=== PATIENT | male | born 1955 | race Caucasian/White ===

== ENCOUNTER 2016-11-27 12:59 | Inpatient (IN) | payer MEDICARE, MEDICAID ==
[~2016-11-27] VITALS: Ht 160 cm; Wt 65.8 kg
--- NOTE | 2016-11-27 13:15 | NUR ---
BIB RA FROM DIALYSIS FOR BEING ALTERED DURING DIALYSIS, PATIENT WAS NOT ALTERED UPON ARRIVAL ACCORDING TO RA, PATIENT IS VERBALLY RESPONSIVE, A/O X4, ABLE TO AMBULATE TO BED, PLACED ON MONITOR, NO OTHER MEDICAL COMPLAINTS NOTED, WILL CONTINUE TO MONITOR CLOS[place]
[2016-11-27 13:30] LABS: BASOPHILS % (AUTO) 0.7 % (0.0-2.0); EOSINOPHILS # (AUTO) 0.1 /CMM (0.0-0.7); EOSINOPHILS % (AUTO) 2.3 % (0.0-6.0); HEMATOCRIT 28 % (39-51); HEMOGLOBIN 9.8 g/dL (13.5-17.5); LYMPHOCYTES # (AUTO) 0.9 /CMM (0.8-4.8); LYMPHOCYTES % (AUTO) 13.2 % (20.0-44.0); MEAN CORPUSCULAR HEMOGLOBIN 34 PG (26.0-33.0); MEAN CORPUSCULAR HGB CONC 35 g/dl (31.0-36.0); MEAN CORPUSCULAR VOLUME 97 fL (80-96); MONOCYTES # (AUTO) 0.4 /CMM (0.1-1.30); MONOCYTES % (AUTO) 6.9 % (2.0-12.0); NEUTROPHILS # (AUTO) 5.1 /CMM (1.8-8.9); NEUTROPHILS % (AUTO) 76.9 % (43.0-81.0); PLATELET COUNT (AUTO) 207 /CMM (150-450); RDW COEFFICIENT OF VARIATION 17.4 (11.5-15.0); RED BLOOD CELL COUNT(AUTO) 2.88 MIL/uL (4.5-6.0); WHITE BLOOD COUNT (AUTO) 6.5 K/uL (4.3-11.0)
[2016-11-27 13:44] LABS: CALCIUM, SERUM 8.9 mg/dL (8.5-10.1); POTASSIUM 3.2 mmol/L (3.5-5.1)
[2016-11-27 13:50] LABS: ALBUMIN 3.8 g/dL (3.4-5.0); BILIRUBIN,DIRECT 0.1 mg/dL (0.0-0.2); BILIRUBIN,TOTAL 0.4 mg/dL (0.2-1.0); TOTAL PROTEIN, SERUM 8.2 g/dL (6.4-8.2)
[2016-11-27 13:51] LABS: CREATININE 7.9 mg/dL (0.6-1.3)
[2016-11-27 13:54] LABS: SERUM AMMONIA 26 umol/L (11-32)
--- NOTE | 2016-11-27 14:02 | NUR ---
DR WALLIS ON THE PHONE WITH DR JUNE.
[2016-11-27] MEDS ORDERED: BENA20TA2 PO (14:07)
[2016-11-27] MEDS ORDERED: HYDR-3326 PO (14:07)
[2016-11-27] MEDS ORDERED: DIPH25CA6 PO (14:07)
[2016-11-27] MEDS ORDERED: SEVE400T PO (14:07)
[2016-11-27] MEDS ORDERED: DOCU-25 PO (14:07)
[2016-11-27] MEDS ORDERED: BISA10SU8 RC (14:07)
[2016-11-27] MEDS ORDERED: CARV6.25 PO (14:07)
[2016-11-27] MEDS ORDERED: PANT40TA4 PO (14:07)
[2016-11-27] MEDS ORDERED: FOLI0.4T2 PO (14:07)
[2016-11-27] MEDS ORDERED: CALC-7 PO (14:07)
[2016-11-27] MEDS ORDERED: MIRT15TA PO (14:07)
[2016-11-27] MEDS ORDERED: CINA30TA PO (14:07)
[2016-11-27] MEDS ORDERED: ASCO500T9 PO (14:09)
[2016-11-27] MEDS ORDERED: VITA1TAB56 PO (14:09)
[2016-11-27] MEDS ORDERED: ACET-868 PO (14:09)
[2016-11-27] MEDS ORDERED: CYAN10009 PO (14:09)
--- NOTE | 2016-11-27 14:11 | NUR ---
IV PLACED R AC 18G. PATENT AND FLUSHING WELL
[2016-11-27 14:13] LABS: ACETAMINOPHEN 0 ug/ml (10-30); ALCOHOL, BLOOD < 3 mg/dL (0-0); SALICYLATE 1.8 mg/dL (2.8-20.0)
[2016-11-27] MEDS ORDERED: hydrALAZINE HCL IV 20 MG VIAL ONE (14:24)
[2016-11-27] MEDS ORDERED: hydrALAZINE HCL IV 20 MG VIAL IV ONE (14:30)
--- NOTE | 2016-11-27 14:31 | NUR ---
MEDICATIONS GIVEN ORDERED.
--- NOTE | 2016-11-27 14:49 | NUR ---
Report given to nurse Brizuela for continuity of care
[2016-11-27 14:52] LABS: ABG BASE EXCESS 1.6 mmol/L; ABG OXYGEN SATURATION 96.8 % (92.0-98.5); ABG PCO2 32.6 mmHg (35.0-45.0); ABG PH 7.495 (7.350-7.450); AaDO2 11.7 mmHg; COHb 0.6 % (0.5-1.5); MetHb 0.4 % (0.0-1.5); O2Hb 95.8 % (94.0-97.0); SITE, ABG Right Radial; VENT MODE, BG ROOM AIR
--- NOTE | 2016-11-27 15:19 | NUR ---
patient transported to [facility].
--- NOTE | 2016-11-27 15:20 | NUR ---
WELDING EQUIPMENT REPAIRER SUPERVISOR NOTES RECEIVED PT FROM E.R. STAFF, PT AWAKE, ALERT TO SELF, KNOW WHERE HE IS BUT CANNOT RECALL TODAY'S DATE, DENIES PAIN, RESPIRATIONS NORMAL, NO COMPLAINT OF HEADACHE OR DIZZINESS, ASSISTED TO BED, MADE COMFORTABLE, CALL LIGHT WITHIN REACH, ROOM SET UP ORIENTATION PROVIDED TO PT, BELONGINGS CHECKED, DIALYSIS CATH AT LEFT UPPER CHEST, NO BLEEDING NOTED, AWAITING ADMISSION ORDERS FROM DR. ZAMORA.
[2016-11-27 16:00] VITALS: BP 161/105
[2016-11-27] MEDS ORDERED: HYDROCODONE/APAP 5/325MG 1 EACH TABLET PO PRN ×2 (16:00)
[2016-11-27] MEDS ORDERED: ACETAMINOPHEN 325 MG TABLET PO PRN (16:00)
[2016-11-27] MEDS ORDERED: BISACODYL SUPP (10 MG) 10 MG/SUPP.RECT SUPP.RECT RC PRN (16:00)
[2016-11-27] MEDS ORDERED: diphenhydrAMINE HCL 25 MG CAPSULE PO PRN (16:00)
[2016-11-27 17:01] LABS: RETICULOCYTE COUNT 2.4 % (0.6-2.5)
[2016-11-27 17:13] LABS: PROTHROMBIN TIME 10.7 SECS (9.5-12.7)
[2016-11-27] MEDS: MIRTAZAPINE 15 MG TABLET PO SCH ×2 (17:25→21:39)
[2016-11-27] MEDS: CARVEDILOL 6.25 MG TABLET PO SCH (17:25)
[2016-11-27] MEDS: ASCORBIC ACID 500 MG TABLET PO SCH (17:25)
[2016-11-27] MEDS: BENAZEPRIL HCL 20 MG TABLET PO SCH (17:25)
--- NOTE | 2016-11-27 19:40 | NUR ---
MS RN NOTES RECEIVED ON BED SLEEPING,AROUSABLE TO VERBAL STIMULI,A/O X1-2,RE ORIENT TO PLACE AND ROOM ASSIGNMENT.WITH LEFT CHEST WALL DONNY CATH FOR HD ACCESS.SALINE LOCK RIGHT AC INTACT AND PATENT.CALL LIGHT IN REACH,NEEDS ANTICIPATED.
[2016-11-27 20:00] VITALS: BP 146/105
[2016-11-27] MEDS: DOCUSATE SODIUM 100 MG CAPSULE PO SCH (21:39)
--- NOTE | 2016-11-27 22:00 | NUR ---
MS RN NOTES DUE PO MEDS ADMINISTERED,TAKEN WELL.SNACKS PROVIDED PER PATIENT REQUEST
[2016-11-28] VITALS (11 sets, daily range): BP systolic 140–199; BP diastolic 80–108
--- NOTE | 2016-11-28 06:37 | NUR ---
MS RN NOTES REFUSE VITAL SIGNS AT 5AM.SCREAM TO KATIE
--- NOTE | 2016-11-28 06:38 | NUR ---
MS RN NOTES FAIRLY RESTED,DENIES DISCOMFORTS,CALL LIGHT IN REACH,NEEDS ATTENDED.WILL ENDORSE TO DAY NURSE TO MIKAELA.
[2016-11-28 06:41] LABS: ALBUMIN 3.5 g/dL (3.4-5.0); BILIRUBIN,TOTAL 0.3 mg/dL (0.2-1.0); CALCIUM, SERUM 8.2 mg/dL (8.5-10.1); POTASSIUM 3.9 mmol/L (3.5-5.1); TOTAL PROTEIN, SERUM 7.6 g/dL (6.4-8.2)
[2016-11-28 06:51] LABS: CREATININE 10.6 mg/dL (0.6-1.3)
[2016-11-28 07:23] LABS: HEMATOCRIT 28 % (39-51); HEMOGLOBIN 9.2 g/dL (13.5-17.5); MEAN CORPUSCULAR HEMOGLOBIN 33 PG (26.0-33.0); MEAN CORPUSCULAR VOLUME 99 fL (80-96); RED BLOOD CELL COUNT(AUTO) 2.83 MIL/uL (4.5-6.0)
[2016-11-28 07:24] LABS: BASOPHILS # (AUTO) 0.1 /CMM (0.0-0.2); BASOPHILS % (AUTO) 0.8 % (0.0-2.0); EOSINOPHILS # (AUTO) 0.2 /CMM (0.0-0.7); EOSINOPHILS % (AUTO) 2.5 % (0.0-6.0); LYMPHOCYTES # (AUTO) 1.3 /CMM (0.8-4.8); LYMPHOCYTES % (AUTO) 18.9 % (20.0-44.0); MEAN CORPUSCULAR HGB CONC 33 g/dl (31.0-36.0); MONOCYTES # (AUTO) 0.7 /CMM (0.1-1.30); MONOCYTES % (AUTO) 9.4 % (2.0-12.0); NEUTROPHILS # (AUTO) 4.8 /CMM (1.8-8.9); NEUTROPHILS % (AUTO) 68.4 % (43.0-81.0); PLATELET COUNT (AUTO) 210 /CMM (150-450); RDW COEFFICIENT OF VARIATION 18.8 (11.5-15.0)
--- NOTE | 2016-11-28 07:30 | NUR ---
MS RN AM NOTES PT IN BED, ASLEEP, AROUSES TO NAME AND TOUCH, AOX2, ON RA, NAD, NO SOB, O2 SAT 99%, TELEMETRY READS SR HR 91, DENIES ANY CHEST PAIN, RT AC 18G HL, FLUSHES WELL SITE CLEAR. LCW PERMACATH, WITH CDI DRESSING, FOR CARDIAC AND NEPHRO CONSULT. [facility] SOFT DIET, AMBULATES, CALL LIGHT IN REACH, SR X 2, BED LOW LOCKED. WILL CONT TO MONITOR.
[2016-11-28 08:14] LABS: TROPONIN I 0.155 ng/mL (0.00-0.056)
[2016-11-28] MEDS: CYANOCOBALAMIN 500 MCG TABLET PO SCH (08:58)
[2016-11-28] MEDS: CINACALCET HCL 30 MG TABLET PO SCH (08:58)
[2016-11-28] MEDS: BENAZEPRIL HCL 20 MG TABLET PO SCH ×2 (08:58→16:40)
[2016-11-28] MEDS: FOLIC ACID 1 MG TABLET PO SCH (08:58)
[2016-11-28] MEDS: CALCIUM CARB 250MG /VITAMIN D 1 UDTAB PO SCH (08:58)
[2016-11-28] MEDS: ASCORBIC ACID 500 MG TABLET PO SCH (08:58)
[2016-11-28] MEDS: CARVEDILOL 6.25 MG TABLET PO SCH ×2 (08:59→16:40)
[2016-11-28] MEDS: VITAMIN B COMP W-C 1 TAB TABLET PO SCH (08:59)
[2016-11-28] MEDS: PANTOPRAZOLE 40 MG TABLET.DR PO SCH (08:59)
[2016-11-28] MEDS ORDERED: SEVELAMER CARBONATE 800 MG TABLET PO SCH (09:00)
[2016-11-28 09:07] LABS: THYROID STIMULATING HORMONE 2.073 uIU/mL (0.358-3.74)
--- NOTE | 2016-11-28 09:30 | NUR ---
HUMAN RELATIONS TEACHER NOTES ADMINISTERED DUE MED. BP RECHECKED 150/85. NOTICED THAT PATIENT IS TALKING TO SELF.
[2016-11-28] MEDS: ASPIRIN EC 81 MG TABLET.DR PO SCH (12:07)
[2016-11-28 12:09] LABS: CHOLESTEROL 151 mg/dL (<200); HDL CHOLESTEROL 52 mg/dL (40-60); LDL 81 mg/dL (0-99); TRIGLYCERIDES 68 mg/dL (30-150)
[2016-11-28] MEDS: SEVELAMER CARBONATE 800 MG TABLET PO SCH ×2 (13:55→17:08)
[2016-11-28] MEDS: hydrALAZINE HCL 10 MG TABLET PO PRN (16:39)
--- NOTE | 2016-11-28 16:42 | NUR ---
VICE PRESIDENT FOR INSTRUCTION NOTE ADMINISTERED APRESOLINE 10 MG. BP 190/108. SEEN BY DR. ZAMORA TODAY.
--- NOTE | 2016-11-28 17:40 | NUR ---
ELECTRONIC SCALE ASSEMBLER AND TESTER NOTES BP RECHECKED. 188/94
--- NOTE | 2016-11-28 18:05 | NUR ---
QUALITY CONTROL ASSISTANT NOTES BP RECHECKED. 160/80
--- NOTE | 2016-11-28 19:01 | NUR ---
CONTRACT DRIVER NOTES ALL NEEDS MET. PT RESTING COMFORTABLY. NOT IN ANY DISTRESS, NO SOB, RESPIRATION UNLABORED. TELEMETRY READS SR HR 80-90s. DENIES ANY PAIN. RTAC HL 20GN IN PLACE, FLUSHES WELL SITE CLEAR. AMBULATES TO BATHROOM. STANDBY FOR FALL RISK. ALL NEEDS MET. SAFETY MEASURES IN PLACE. ASSISTED WITH PM CARE. CALL LIGHT WITHIN REACH, ALL NEEDS MET. ENDORSED TO NEXT SHIFT FOR MIKAELA.
--- NOTE | 2016-11-28 19:05 | NUR ---
NEUROLOGY STROKE PHYSICIAN OPENING NOTES: RECEIVED PT AND IS CURRENTLY SLEEPING IN BED. PT IS A/O X1-2 WITH PERIODS OF CONFUSION. PT IS ON TELE MONITOR AND IS SR 96. CALL LIGHT WITHIN PT'S REACH. BED KEPT IN LOCKED, LOWEST POSITION, AND SIDE RAILS X 2 UP. PT HAS IV ON R AC #18G AND IS PATENT AND INTACT AND CURRENTLY HEP LOCK. NO SIGNS OR SYMPTOMS OF DISTRESS NOTED AT THIS TIME. WILL CONTINUE TO MONITOR PT.
--- NOTE | 2016-11-28 20:00 | NUR ---
PROPERTY CLAIM REP NOTES: BP FOR LAYING DOWN WAS 185/118 HR 79, SITTING DOWN 160/102 HR 79, AND STANDING 152/95 HR 79. PT VOICED HE IS NOT IN ANY PAIN. APRESOLINE WAS GIVEN AT 1639 BY AM NURSE. WILL CONTINUE TO MONITOR PT.
[2016-11-28] MEDS: MIRTAZAPINE 15 MG TABLET PO SCH (21:00)
[2016-11-28] MEDS: DOCUSATE SODIUM 100 MG CAPSULE PO SCH (21:00)
[2016-11-29] VITALS (8 sets, daily range): BP systolic 135–184; BP diastolic 78–105
--- NOTE | 2016-11-29 | NUR ---
MINE ENVIRONMENTAL ENGINEER NOTES: BP FOR LAYING DOWN WAS 145/105 HR 84, SITTING DOWN 153/101 HR 90, AND STANDING IS 164/98 HR 92. WILL CONTINUE TO MONITOR PT.
--- NOTE | 2016-11-29 04:00 | NUR ---
TOP FLAVOR ATTENDANT NOTES: BLOOD PRESSURE WAS CHECKED FOR FOLLOWS SITTIN/99 HR 86, LAYING DOWN: 162/86 HR 87, AND STANDING 155/102 HR 91. WILL CONTINUE TO MONITOR PT.
[2016-11-29] MEDS: hydrALAZINE HCL 10 MG TABLET PO PRN (04:56)
--- NOTE | 2016-11-29 04:56 | NUR ---
REPAIRER HAIRSPRING NOTES: APRESOLINE 10MG WAS ADMINISTERED TO PT SINCE BLOOD PRESSURE IS STILL ELEVATED 162/86 HR 87. WILL CONTINUE TO MONITOR PT.
--- NOTE | 2016-11-29 06:39 | NUR ---
FERRY OPERATOR NOTES: BLOOD PRESSURE WAS CHECKED AGAIN FOLLOWS : SITTING 189/103 HR84, LAYING DOWN 184/91 HR 81, AND STANDING 189/105 HR 90. TEMP 97.4, RR 20, AND PULSE OX 98% . WILL ENDORSE TO AM NURSE FOR MIKAELA.
[2016-11-29 07:13] LABS: BASOPHILS # (AUTO) 0.1 /CMM (0.0-0.2); BASOPHILS % (AUTO) 1.1 % (0.0-2.0); EOSINOPHILS # (AUTO) 0.3 /CMM (0.0-0.7); EOSINOPHILS % (AUTO) 4.2 % (0.0-6.0); HEMATOCRIT 28 % (39-51); HEMOGLOBIN 9.4 g/dL (13.5-17.5); LYMPHOCYTES # (AUTO) 1.5 /CMM (0.8-4.8); LYMPHOCYTES % (AUTO) 21.3 % (20.0-44.0); MEAN CORPUSCULAR HEMOGLOBIN 33 PG (26.0-33.0); MEAN CORPUSCULAR HGB CONC 34 g/dl (31.0-36.0); MEAN CORPUSCULAR VOLUME 99 fL (80-96); MONOCYTES # (AUTO) 0.7 /CMM (0.1-1.30); MONOCYTES % (AUTO) 9.9 % (2.0-12.0); NEUTROPHILS # (AUTO) 4.5 /CMM (1.8-8.9); NEUTROPHILS % (AUTO) 63.5 % (43.0-81.0); PLATELET COUNT (AUTO) 192 /CMM (150-450); RDW COEFFICIENT OF VARIATION 18.3 (11.5-15.0); RED BLOOD CELL COUNT(AUTO) 2.81 MIL/uL (4.5-6.0); WHITE BLOOD COUNT (AUTO) 7.1 K/uL (4.3-11.0)
--- NOTE | 2016-11-29 07:15 | NUR ---
SOCIAL RESEARCH ASSISTANT CLOSING NOTES: ALL NEEDS WERE ATTENDED AND ANTICIPATED FOR. PT IS IN IN BED ASLEEP. NO SIGNS OR SYMPTOMS OF DISTRESS NOTED AT THIS TIME. PT IS ON TELE MONITOR AND IS SINUS RHYTHM 80. PT HAS L CW PERMA CATH AND IS INTACT. PT ALSO HAS R AC #18G AND IS PATENT AND INTACT AND IS CURRENTLY HEP LOCK. OUTPUT FROM URINAL WAS 100ML FOR ENTIRE SHIFT. ENDORSED TO AM NURSE FOR MIKAELA.
[2016-11-29 07:55] LABS: CALCIUM, SERUM 8.3 mg/dL (8.5-10.1); MAGNESIUM 2.3 mg/dL (1.8-2.4); PHOSPHORUS 6.7 mg/dL (2.5-4.9); POTASSIUM 4.2 mmol/L (3.5-5.1)
[2016-11-29 07:56] LABS: CREATININE 11.8 mg/dL (0.6-1.3)
[2016-11-29] MEDS: ASCORBIC ACID 500 MG TABLET PO SCH (08:18)
[2016-11-29] MEDS: VITAMIN B COMP W-C 1 TAB TABLET PO SCH (08:18)
[2016-11-29] MEDS: SEVELAMER CARBONATE 800 MG TABLET PO SCH ×3 (08:18→17:23)
[2016-11-29] MEDS: FOLIC ACID 1 MG TABLET PO SCH (08:18)
[2016-11-29] MEDS: ASPIRIN EC 81 MG TABLET.DR PO SCH (08:18)
[2016-11-29] MEDS: PANTOPRAZOLE 40 MG TABLET.DR PO SCH (08:18)
[2016-11-29] MEDS: CALCIUM CARB 250MG /VITAMIN D 1 UDTAB PO SCH (08:18)
[2016-11-29] MEDS: CINACALCET HCL 30 MG TABLET PO SCH (08:19)
[2016-11-29] MEDS: CYANOCOBALAMIN 500 MCG TABLET PO SCH (08:19)
[2016-11-29] MEDS ORDERED: IV NS 0.9% 2,000 ML ONE (08:35)
--- NOTE | 2016-11-29 08:35 | NUR ---
m/s carding machine operator: notes kristine (hd nurse) here and made aware re: elevated b/p and meds were held. kristine request for 2 bags of normal saline for hd tx to use.
--- NOTE | 2016-11-29 09:00 | NUR ---
m/s general dentist: notes hd tx in progress. no acute distress noted. will continue to monitor.
[2016-11-29] MEDS ORDERED: hydrALAZINE HCL 25 MG TABLET PO PRN (10:00)
--- NOTE | 2016-11-29 10:00 | NUR ---
tele vice president & general manager [employer] [place]: cardio f/u seen and examined by dr. chao with order okay to d'c tele. order acknowledged.
--- NOTE | 2016-11-29 11:00 | NUR ---
m/s clothes designer: nephro f/u seen and examined by dr. hartman at this time.
[2016-11-29] MEDS: BENAZEPRIL HCL 20 MG TABLET PO SCH ×2 (11:08→16:31)
--- NOTE | 2016-11-29 11:08 | NUR ---
m/s children librarian: notes hd completed with 2 liters removed. b/p 100/62, held b/p medication. instructed to call for assistance. will continue to monitor.
--- NOTE | 2016-11-29 13:45 | NUR ---
m/s horse trainer: p.t. eval p.t. eval done. pt walked 200 feet, contact guard per report. pt unsteady with his gait. instructed to call for assistance. will continue to monitor.
--- NOTE | 2016-11-29 14:50 | NUR ---
m/s venetian blind machine operator: md visit seen and examined by dr. lima at this time.
[2016-11-29] MEDS ORDERED: EPOETIN ALFA (10,000 UNIT) 10,000 UNIT/ML VIAL SQ ONE (15:00)
[2016-11-29] MEDS: CARVEDILOL 6.25 MG TABLET PO SCH (16:31)
--- NOTE | 2016-11-29 16:35 | NUR ---
m/s computer technician: notes eeg being perform at bedside at this time to evaluate epileptiform activity.
--- NOTE | 2016-11-29 17:08 | NUR ---
m/s muff winder: notes eeg completed with no seizure activity per preliminary report.
--- NOTE | 2016-11-29 17:25 | NUR ---
m/s appeals manager: notes dinner served. no c/o pain or any discomfort. needs attended. in no apparent distress noted. will continue to monitor.
--- NOTE | 2016-11-29 19:30 | NUR ---
RN INITIAL NOTES RECEIVED PATIENT IN BED, SLEEPING AT THIS TIME, WAKES UP TO NAME AND LIGHT TOUCH. PATIENT ALERT AND ORIENTED X3 AT THIS TIME. PATIENT TOLERATING ROOM AIR WELL, FREE FROM ANY S/S OF RESPIRATORY DISTRESS. IV SITE PATENT AND INTACT, FREE FROM ANY S/S OF INFILTRATION OR PHLEBITIS. PATIENT MADE COMFORTABLE, ALL PERTINENT QUESTIONS REGARDING PLAN OF CARE ANSWERED. CALL LIGHT WITHIN EASY REACH, BED IN LOWEST AND LOCKED POSITION. WILL CONTINUE TO CLOSELY MONITOR.
[2016-11-29] MEDS: DOCUSATE SODIUM 100 MG CAPSULE PO SCH (21:54)
[2016-11-29] MEDS: MIRTAZAPINE 15 MG TABLET PO SCH (21:55)
--- NOTE | 2016-11-30 07:20 | NUR ---
MS RN OPENING NOTES RECEIVED PT. FROM NIGHTSHIFT NURSE IN STABLE CONDITION, AWAKE AND LYING COMFORTABLY IN BED. NO SOB OR SIGNS OF DISTRESS NOTED. DENIES ANY PAIN AT THIS TIME. PT IS A/O X3. IV PRESENT ON RIGHT AC 18G PATENT AND INTACT. BED IN LOW LOCKED POSITION, SIDE RAILS UP X2, CALL LIGHT WITHIN REACH. WILL CONTINUE TO MONITOR.
[2016-11-30 08:00] VITALS: BP 138/82
[2016-11-30] MEDS: PANTOPRAZOLE 40 MG TABLET.DR PO SCH (08:29)
[2016-11-30] MEDS: SEVELAMER CARBONATE 800 MG TABLET PO SCH ×3 (08:29→17:26)
[2016-11-30] MEDS: ASCORBIC ACID 500 MG TABLET PO SCH (08:30)
[2016-11-30] MEDS: BENAZEPRIL HCL 20 MG TABLET PO SCH ×2 (08:30→17:00)
[2016-11-30] MEDS: CINACALCET HCL 30 MG TABLET PO SCH (08:30)
[2016-11-30] MEDS: FOLIC ACID 1 MG TABLET PO SCH (08:30)
[2016-11-30] MEDS: ASPIRIN EC 81 MG TABLET.DR PO SCH (08:30)
[2016-11-30] MEDS: CARVEDILOL 6.25 MG TABLET PO SCH ×2 (08:31→17:00)
[2016-11-30] MEDS: CALCIUM CARB 250MG /VITAMIN D 1 UDTAB PO SCH (08:31)
[2016-11-30] MEDS: VITAMIN B COMP W-C 1 TAB TABLET PO SCH (08:31)
[2016-11-30] MEDS: CYANOCOBALAMIN 500 MCG TABLET PO SCH (08:31)
[2016-11-30 16:07] VITALS: BP 123/81
[2016-11-30] MEDS ORDERED: IV NS 0.9% 1,000 ML ONE (16:29)
--- NOTE | 2016-11-30 17:01 | NUR ---
MS RN NOTES PT. IS CURRENTLY RECEIVING DIALYSIS
[2016-11-30] MEDS ORDERED: IV NS 0.9% 1,000 ML IV PRN (17:30)
--- NOTE | 2016-11-30 18:49 | NUR ---
RN CLOSING NOTES PT. IN STABLE CONDITION. DIALYSIS WAS COMPLETED AND 1.5L WAS REMOVED. ALL NEEDS MET DURING SHIFT AND ORDERS CARRIED OUT ACCORDINGLY. NO ACUTE CHANGES OCCURRED DURING SHIFT. NO SYNCOPAL EPISODES OR CHANGES IN MENTAL STATUS. WILL ENDORSE TO NIGHTSHIFT NURSE FOR MIKAELA
--- NOTE | 2016-11-30 19:40 | NUR ---
RN OPENING NOTES RECEIVED REPORT FROM DAYSMTFT RN AFSATU. FOUND Pt AWAKE RESTING IN BED. NO S/S OF ACUTE DISTRESS OR SOB NOTED. NO C/O PAIN OR DIZZINESS. Pt IS A/OX3. IV ACCESS ON RAC #18G, SL. LCW PERMACATH. HAD HD TODAY WITH 1.5L OUTPUT. SAFETY MEASURES IN PLACE. BED LOW, LOCKED, HOB ELEVATED, SIDE RAILS UP, CALL LIGHT AND BEDSIDE TABLE WITHIN REACH. WILL CONTINUE TO MONITOR Pt THROUGHOUT THE SHIFT.
[2016-11-30 20:00] VITALS: BP_SYST 117; BP_SYST 130; BP_DIAS 77; BP_DIAS 87
[2016-11-30] MEDS: MIRTAZAPINE 15 MG TABLET PO SCH (22:18)
[2016-11-30] MEDS: DOCUSATE SODIUM 100 MG CAPSULE PO SCH (22:18)
--- NOTE | 2016-12-01 06:23 | NUR ---
RN CLOSING NOTES NO SIGNIFICANT CHANGES NOTED DURING THE NIGHT. NO ACUTE DISTRESS OR SOB NOTED. ALL NEEDS MET AND ATTENDED TO. SAFETY MEASURES IN PLACE. WILL ENDORSE TO DAYSHIFT RN FOR Pt's MIKAELA.
[2016-12-01] MEDS: PANTOPRAZOLE 40 MG TABLET.DR PO SCH (06:41)
[2016-12-01 08:00] VITALS: BP 134/92
--- NOTE | 2016-12-01 08:01 | NUR ---
RN MS NOTES RECEIVED PATIENT IN BED, IN NO APPARENT DISTRESS. A/OX 4, VERBALLY RESPONSIVE, DENIES PAIN, DENIES SOB. DENIES DIZZINESS. IV LINE ON RIGHT AC PATENT, WITH LEFT CHEST WALL PERMACATH. ALL NEEDS MET, CALL LIGHT WITHIN REACH.
[2016-12-01] MEDS: SEVELAMER CARBONATE 800 MG TABLET PO SCH ×3 (09:01→17:29)
[2016-12-01] MEDS: CALCIUM CARB 250MG /VITAMIN D 1 UDTAB PO SCH (09:02)
[2016-12-01] MEDS: ASPIRIN EC 81 MG TABLET.DR PO SCH (09:02)
[2016-12-01] MEDS: CINACALCET HCL 30 MG TABLET PO SCH (09:02)
[2016-12-01] MEDS: CYANOCOBALAMIN 500 MCG TABLET PO SCH (09:02)
[2016-12-01] MEDS: VITAMIN B COMP W-C 1 TAB TABLET PO SCH (09:02)
[2016-12-01] MEDS: CARVEDILOL 6.25 MG TABLET PO SCH ×2 (09:03→17:30)
[2016-12-01] MEDS: ASCORBIC ACID 500 MG TABLET PO SCH (09:03)
[2016-12-01] MEDS: BENAZEPRIL HCL 20 MG TABLET PO SCH ×2 (09:03→17:00)
[2016-12-01] MEDS: FOLIC ACID 1 MG TABLET PO SCH (09:03)
[2016-12-01 09:19] LABS: CALCIUM, SERUM 8.5 mg/dL (8.5-10.1); POTASSIUM 3.8 mmol/L (3.5-5.1)
[2016-12-01 09:29] LABS: CREATININE 7.9 mg/dL (0.6-1.3)
[2016-12-01 10:33] LABS: PHOSPHORUS 4.5 mg/dL (2.5-4.9)
[2016-12-01 16:00] VITALS: BP 113/73
--- NOTE | 2016-12-01 19:35 | NUR ---
RN OPENING NOTES Pt BEING [facility]. WILL CALL CENTER TO GIVE REPORT. FOUND Pt AWAKE RESTING IN BED. NO S/S OF ACUTE DISTRESS OR SOB NOTED. NO C/O PAIN OR DIZZINESS. WILL CONTINUE TO MONITOR Pt UNTIL AMBULANCE ARRIVES FOR TRANSPORTATION.
[2016-12-01 20:00] VITALS: BP 104/65
--- NOTE | 2016-12-01 21:00 | NUR ---
PSYCHIATRIC CLINICIAN NOTES CALLED [facility] TO GIVE REPORT, SPOKE WITH CLAU. EMT AMBULANCE ARRIVED TO LAMINATION SPINNER Pt FOR TRANSPORTATION. Pt IS STABLE. VS @2000: BP 104/65, HR 86, R 18, T 98.9, O2 98%. NO S/S OF ACUTE DISTRESS OR SOB NOTED. NO C/O PAIN OR DIZZINESS. SAFETY MEASURES CARRIED OUT. IV ACCESS ON RAC REMOVED, SECURED SITE WITH GAUZE AND TAPE. Pt SAFETY TRANSFERRED TO [facility] AND CARRIED OUT BY EMT.
== END 2016-12-01 20:50 | DRG 280 ==
LOC: ER 13:02 → TELE 14:39 → MED 11-29 10:55
PROVIDERS: ADMIT Internal Medicine Rheumatology; ATTEND Internal Medicine Rheumatology
PROC: 5A1D60Z (ICD-10-PCS; principal; 2016-11-29)
DX: I21.4 Non-ST elevation (NSTEMI) myocardial infarction (principal); N18.6 End stage renal disease; G93.49 Other encephalopathy; I12.0 Hypertensive chronic kidney disease with stage 5 chronic kidney disease or end stage renal disease; Z99.2 Dependence on renal dialysis; E87.6 Hypokalemia
CPT/HCPCS: 36415; 36600; 70450-TC; 71010-TC; 80048-TC; 80053-TC; 80061-TC; 80076-TC; 82140-TC; 82306; 82728-TC; 82746; 83540-TC; 83615-TC; 83735-TC; 84100-TC; 84439-TC; 84443-TC; 84484-TC; 84550-TC; 85025-TC; 85045-TC; 85610-TC; 85652-TC; 87040-TC; 87081-TC; 90935-TC; 93307-TC; 95819-TC; 97001-TC; 97116-TC; 97530-TC; A4606; G0480; J0360; J0885; J7030; Z7610

== ENCOUNTER 2017-05-19 12:31 | Inpatient (IN) | payer MEDICARE, MEDICAID ==
[~2017-05-19] VITALS: Ht 167.6 cm; Wt 64.0 kg
[~2017-05-19 12:31] MED LIST: ACET-868 PO; ASCO500T9 PO; BENA20TA2 PO; BISA10SU8 RC; CALC-7 PO; CARV6.25 PO; CINA30TA PO; CYAN10009 PO; DIPH25CA6 PO; DOCU-25 PO; FOLI0.4T2 PO; HYDR-3326 PO; MIRT15TA PO; PANT40TA4 PO; SEVE400T PO; VITA1TAB56 PO
--- NOTE | 2017-05-19 12:40 | NUR ---
BBRA 99 FROM DIALYSIS CENTER FOUND ALTERED AND LETHARGIC POST DIALYSIS. VOMITING X1, BS [place] 137. A/OX 3 CURRENTLY, BREATHING EVEN AND UNLABORED. NO SOB. VITALS STABLE. SAFETY AND COMFORT MEASURES IN PLACE. AWAITING MD ORDERS.
--- NOTE | 2017-05-19 12:45 | NUR ---
NEW IV STARTED ON R HAND, 20 G. BLOOD DRAWN AND SENT TO LAB.
[2017-05-19 12:51] LABS: BASOPHILS # (AUTO) 0.1 /CMM (0.0-0.2); BASOPHILS % (AUTO) 1.7 % (0.0-2.0); EOSINOPHILS # (AUTO) 0.1 /CMM (0.0-0.7); EOSINOPHILS % (AUTO) 2.1 % (0.0-6.0); HEMATOCRIT 30 % (39-51); HEMOGLOBIN 10.2 g/dL (13.5-17.5); LYMPHOCYTES # (AUTO) 0.7 /CMM (0.8-4.8); LYMPHOCYTES % (AUTO) 12.9 % (20.0-44.0); MEAN CORPUSCULAR HEMOGLOBIN 35 PG (26.0-33.0); MEAN CORPUSCULAR HGB CONC 33 g/dl (31.0-36.0); MEAN CORPUSCULAR VOLUME 104 fL (80-96); MONOCYTES # (AUTO) 0.3 /CMM (0.1-1.30); MONOCYTES % (AUTO) 5.2 % (2.0-12.0); NEUTROPHILS # (AUTO) 4.2 /CMM (1.8-8.9); NEUTROPHILS % (AUTO) 78.1 % (43.0-81.0); PLATELET COUNT (AUTO) 142 /CMM (150-450); RDW COEFFICIENT OF VARIATION 17.1 (11.5-15.0); RED BLOOD CELL COUNT(AUTO) 2.92 MIL/uL (4.5-6.0); WHITE BLOOD COUNT (AUTO) 5.4 K/uL (4.3-11.0)
--- NOTE | 2017-05-19 12:53 | NUR ---
PATIENT TAKEN TO CT VIA STRETCHER.
--- NOTE | 2017-05-19 12:57 | NUR ---
PATIENT RETURNED FROM CT IN STABLE CONDITION.
--- NOTE | 2017-05-19 13:06 | NUR ---
HARDWOOD FINISHER AT BEDSIDE.
[2017-05-19] MEDS ORDERED: FOLI1TAB16 PO (13:50)
[2017-05-19] MEDS ORDERED: DIPH25CA6 PO (13:50)
[2017-05-19] MEDS ORDERED: ASPI81TA2 PO (13:50)
[2017-05-19] MEDS ORDERED: CHOL100044 PO (13:50)
[2017-05-19] MEDS ORDERED: ATOR10TA PO (13:50)
[2017-05-19] MEDS ORDERED: HYDR-4076 PO (13:50)
[2017-05-19 13:51] LABS: CALCIUM, SERUM 8.9 mg/dL (8.5-10.1); POTASSIUM 3.2 mmol/L (3.5-5.1)
[2017-05-19 13:55] LABS: CREATININE 12.3 mg/dL (0.6-1.3)
[2017-05-19 13:57] LABS: ALBUMIN 3.6 g/dL (3.4-5.0); BILIRUBIN,DIRECT 0.1 mg/dL (0.0-0.2); BILIRUBIN,TOTAL 0.4 mg/dL (0.2-1.0); TOTAL PROTEIN, SERUM 7.6 g/dL (6.4-8.2)
[2017-05-19] MEDS ORDERED: ASPIRIN 81 MG TAB.CHEW PO ONE (14:00)
--- NOTE | 2017-05-19 14:00 | NUR ---
REPORT GIVEN TO DARRIUS BURRELL FOR MIKAELA UPON ADMISSION.
[2017-05-19] MEDS ORDERED: ASPIRIN 81 MG TAB.CHEW ONE (14:05)
--- NOTE | 2017-05-19 14:05 | NUR ---
PATIENT MEDICATED PER MD ORDERS.
--- NOTE | 2017-05-19 14:30 | NUR ---
PATIENT ARRIVED TO THE UNIT IN STABLE CONDITION. WILL CONTINUE TO MONITOR. BEDSIDE RAILS ARE UP X2. BED IS LOCKED AND LOWERED. CALL LIGHT IS WITHIN REACH.
[2017-05-19 14:47] LABS: INR 1.03 (0.87-1.13); PROTHROMBIN TIME 10.7 SECS (9.5-12.7)
[2017-05-19 15:26] LABS: PARTIAL THROMBOPLASTIN TIME > 170 SEC (23-34)
--- NOTE | 2017-05-19 15:39 | NUR ---
LEFT MESSAGE FOR DR. BABIN. AWAITING ORDERS.
--- NOTE | 2017-05-19 16:00 | NUR ---
GAVE PATIENT DILAUDID FOR PAIN. Addendum: 05/19/17 at 1834 by DARRIUS WILLIAM RN CHARTED ON WRONG PATIENT. DISREGARD NOTE
[2017-05-19] MEDS: CARVEDILOL 6.25 MG TABLET PO SCH (17:41)
[2017-05-19] MEDS ORDERED: HYDROCODONE/APAP 5/325MG 1 EACH TABLET PO PRN ×2 (18:00)
[2017-05-19] MEDS ORDERED: ACETAMINOPHEN 325 MG TABLET PO PRN (18:00)
[2017-05-19] MEDS ORDERED: diphenhydrAMINE HCL 25 MG CAPSULE PO PRN (18:00)
--- NOTE | 2017-05-19 18:42 | NUR ---
DIGITAL MEDIA BUYER CLOSING NOTES PATIENT IS IN STABLE CONDITION. IN NO APPARENT DISTRESS. CALL LIGHT IS WITHIN REACH. BEDSIDE RAILS ARE UP X2. BED IS LOCKED AND LOWERED. WILL ENDORSE CARE TO MACHINE HOOP MAKER NURSE FOR MIKAELA.
--- NOTE | 2017-05-19 19:20 | NUR ---
MS RN Initial notes Received pt awake,verbally responsive, on room air, no SOB,no apparent distress noted.Denies any pain or discomfort at this time. IV site Rt hand intact, patent, no s/sx of infiltration noted. kept clean and comfortable, attended all needs. Call light within reach. Will continue to monitor accordingly
--- NOTE | 2017-05-19 20:00 | NUR ---
SINUS RHYTHM 90. NO APPARENT DISTRESS NOTED.DENIES DISCOMFORT AT THIS TIME.
[2017-05-19 20:04] VITALS: BP 133/79
[2017-05-19 20:18] VITALS: BP 133/79
[2017-05-19] MEDS: MIRTAZAPINE 15 MG TABLET PO SCH (21:11)
[2017-05-19] MEDS: hydrALAZINE HCL 25 MG TABLET PO SCH (21:11)
[2017-05-19] MEDS: DOCUSATE SODIUM 100 MG CAPSULE PO SCH (21:12)
--- NOTE | 2017-05-19 21:30 | NUR ---
RN NOTES DR. BABIN CAME AND CHECKED THE PT AND GAVE VERBAL ORDER, ORDER NOTED AND CARRIED OUT
[2017-05-19] MEDS ORDERED: POTASSIUM CHLORIDE 20 MEQ TAB.PRT.SR PO SCH (22:30)
[2017-05-19] MEDS ORDERED: POTASSIUM CHLORIDE 20 MEQ TAB.PRT.SR PO ONE (22:32)
[2017-05-20] VITALS (10 sets, daily range): BP systolic 109–163; BP diastolic 61–94
[2017-05-20] MEDS: hydrALAZINE HCL 25 MG TABLET PO SCH ×3 (04:46→20:56)
--- NOTE | 2017-05-20 06:28 | NUR ---
PIPE COVERER CLOSING NOTES PT IN BED AWAKE,ALERT, RESPONSIVE,ON ROOM AIR,NO SOB,NO APPARENT DISTRESS NOTED. KEPT CLEAN AND COMFORTABLE,CALL LIGHT WITHIN REACH.ATTENDED ALL NEEDS. WILL CONTINUE TO MONITOR
[2017-05-20 06:32] LABS: BASOPHILS # (AUTO) 0.1 /CMM (0.0-0.2); BASOPHILS % (AUTO) 1.3 % (0.0-2.0); EOSINOPHILS # (AUTO) 0.3 /CMM (0.0-0.7); EOSINOPHILS % (AUTO) 4.7 % (0.0-6.0); HEMATOCRIT 29 % (39-51); HEMOGLOBIN 9.7 g/dL (13.5-17.5); LYMPHOCYTES # (AUTO) 1.2 /CMM (0.8-4.8); LYMPHOCYTES % (AUTO) 21.1 % (20.0-44.0); MEAN CORPUSCULAR HEMOGLOBIN 35 PG (26.0-33.0); MEAN CORPUSCULAR HGB CONC 33 g/dl (31.0-36.0); MEAN CORPUSCULAR VOLUME 106 fL (80-96); MONOCYTES # (AUTO) 0.7 /CMM (0.1-1.30); MONOCYTES % (AUTO) 11.9 % (2.0-12.0); NEUTROPHILS # (AUTO) 3.3 /CMM (1.8-8.9); PLATELET COUNT (AUTO) 136 /CMM (150-450); RDW COEFFICIENT OF VARIATION 18.6 (11.5-15.0); RED BLOOD CELL COUNT(AUTO) 2.76 MIL/uL (4.5-6.0); WHITE BLOOD COUNT (AUTO) 5.5 K/uL (4.3-11.0)
[2017-05-20 06:55] LABS: TROPONIN I 0.175 ng/mL (0.00-0.056)
--- NOTE | 2017-05-20 07:00 | NUR ---
RN INITIAL NOTE PATIENT RECEIVED IN BED SLEEPING. NO SOB OR DISTRESS, PATIENT DOES NOT APPEAR TO BE IN PAIN, NO FACIAL GRIMACE NOTED. HEART RATE SR IN THE 70S. BED IN A LOW POSITION, CALL LIGHT WITHIN PATIENT REACH. WILL CONTINUE TO MONITOR.
[2017-05-20 07:16] LABS: ALBUMIN 3.4 g/dL (3.4-5.0); BILIRUBIN,TOTAL 0.3 mg/dL (0.2-1.0); CALCIUM, SERUM 8.7 mg/dL (8.5-10.1); MAGNESIUM 2.3 mg/dL (1.8-2.4); PHOSPHORUS 6.3 mg/dL (2.5-4.9); POTASSIUM 4.3 mmol/L (3.5-5.1); TOTAL PROTEIN, SERUM 7.3 g/dL (6.4-8.2)
[2017-05-20 07:51] LABS: CREATININE 15.9 mg/dL (0.6-1.3)
--- NOTE | 2017-05-20 07:52 | NUR ---
RECEIVED A CALL FROM LAB OF BUN AND CREATININE OF 91 AND 15.9. WILL INFORM
[2017-05-20] MEDS: FOLIC ACID 1 MG TABLET PO SCH (08:32)
[2017-05-20] MEDS: CARVEDILOL 6.25 MG TABLET PO SCH ×2 (08:32→17:00)
[2017-05-20] MEDS: BENAZEPRIL HCL 20 MG TABLET PO SCH ×2 (08:32→17:00)
[2017-05-20] MEDS: SEVELAMER CARBONATE 800 MG TABLET PO SCH ×3 (08:32→17:18)
[2017-05-20] MEDS: ASPIRIN 81 MG TAB.CHEW PO SCH (08:32)
[2017-05-20] MEDS: PANTOPRAZOLE 40 MG TABLET.DR PO SCH (08:33)
[2017-05-20] MEDS: CHOLECALCIFEROL 1,000 UNIT TABLET (VIT D3) PO SCH (08:33)
[2017-05-20] MEDS: CALCIUM CARB 250MG /VITAMIN D 1 UDTAB PO SCH (08:33)
[2017-05-20] MEDS: CINACALCET HCL 30 MG TABLET PO SCH (09:25)
--- NOTE | 2017-05-20 09:41 | NUR ---
PT DC FROM TELE
--- NOTE | 2017-05-20 11:36 | NUR ---
CALLED [facility] WHERE PT RESIDES TO ENQUIRE ABOUT VACCINATION STATUS. PATIENT REFUSED THE PNEUMONIA VACCINE AND HAS NOT HAD A FLU SHOT SINCE MAR 2015. ASKED PT IF HE WOULD LIKE TO RECEIVE EITHER VACCINE WHILE IN THE HOSPITAL AND PATIENT REFUSES. HE STATES HE GOT THE FLU LAST TIME HE HAD A FLU SHOT AND DOESN'T WANT ANY VACCINES.
[2017-05-20] MEDS ORDERED: EPOETIN ALFA (10,000 UNIT) 10,000 UNIT/ML VIAL IV ONE (12:00)
--- NOTE | 2017-05-20 13:03 | NUR ---
HOLDING PT BP MEDS HE IS TO HAVE DIALYSIS THIS AFTERNOON. TARA WITHIN NORMAL LIMITS FOR NOW. WILL CONTINUE TO CHECK.
--- NOTE | 2017-05-20 14:55 | NUR ---
Patient is a resident of [facility] [phone]. He requires max assist with adl's. On HD 3x/week every [facility] @ [facility] [phone]. Current plan is to dc back to SNF once stable. Addendum: 05/20/17 at 1456 by NORBERT BLAKE RN Amended: Links added.
--- NOTE | 2017-05-20 17:14 | NUR ---
HOLDING EVENING BP MEDS PATIENT IS CURRENTLY UNDERGOING DIALYSIS. BP WITHIN NORMAL LIMITS.
--- NOTE | 2017-05-20 20:00 | NUR ---
MS RN NOTES ON BED SLEEPING,AROUSABLE TO VERBAL STIMULI,S/P HEMODIALYSIS TOLERATED 3HOURS OF TREATMENT,TAKEN OUT 1600ML.WITH LEFT SUBCLAVIAN AMANUEL CATH FOR HD ACCESS.SALINE LOCK RIGHT HAND INTACT AND PATENT.NO S/S OF SOB,CALL LIGHT IN REACH,NEEDS ANTICIPATED.
[2017-05-20] MEDS: MIRTAZAPINE 15 MG TABLET PO SCH (21:45)
[2017-05-20] MEDS: DOCUSATE SODIUM 100 MG CAPSULE PO SCH (21:45)
--- NOTE | 2017-05-21 | NUR ---
MS RN NOTES AWAKE,GETS UP WITH OUT CALLING FOR ASSISTANCE,FALL RISK,BED ALARM ON.ASSISTED TO THE TOILET
[2017-05-21] MEDS: hydrALAZINE HCL 25 MG TABLET PO SCH ×3 (05:03→21:23)
--- NOTE | 2017-05-21 06:27 | NUR ---
MS RN NOTES MORE ALERT,FOLLOW INSTRUCTION.COMPLIANT WITH MEDS,AMBULATE WITH ASSIST.LATEST BP 128/82,PULSE 92.IN NO ACUTE DISTRESS.WILL ENDORSE TO DAY NURSE FOR MIKAELA.
[2017-05-21 06:37] LABS: BASOPHILS # (AUTO) 0.1 /CMM (0.0-0.2); BASOPHILS % (AUTO) 1.8 % (0.0-2.0); EOSINOPHILS # (AUTO) 0.4 /CMM (0.0-0.7); EOSINOPHILS % (AUTO) 5.4 % (0.0-6.0); HEMATOCRIT 31 % (39-51); HEMOGLOBIN 10.1 g/dL (13.5-17.5); LYMPHOCYTES % (AUTO) 28.8 % (20.0-44.0); MEAN CORPUSCULAR HEMOGLOBIN 35 PG (26.0-33.0); MEAN CORPUSCULAR HGB CONC 33 g/dl (31.0-36.0); MEAN CORPUSCULAR VOLUME 106 fL (80-96); MONOCYTES % (AUTO) 14.4 % (2.0-12.0); NEUTROPHILS # (AUTO) 3.4 /CMM (1.8-8.9); NEUTROPHILS % (AUTO) 49.6 % (43.0-81.0); PLATELET COUNT (AUTO) 128 /CMM (150-450); RDW COEFFICIENT OF VARIATION 18.3 (11.5-15.0); RED BLOOD CELL COUNT(AUTO) 2.92 MIL/uL (4.5-6.0); WHITE BLOOD COUNT (AUTO) 6.9 K/uL (4.3-11.0)
[2017-05-21 06:50] LABS: CALCIUM, SERUM 8.9 mg/dL (8.5-10.1); POTASSIUM 3.7 mmol/L (3.5-5.1)
[2017-05-21 06:53] LABS: CREATININE 9.2 mg/dL (0.6-1.3)
--- NOTE | 2017-05-21 07:10 | NUR ---
RN INITIAL NOTES REPORT RECEIVED AT THE BEDSIDE. PATIENT IS RESTING COMFORTABLY IN BED. NO SOB OR DISTRESS NOTED AT THIS TIME. PATIENT REPORTS NO PAIN AT THIS TIME. BED IN A LOW POSITION, CALL LIGHT WITHIN PATIENT REACH. WILL CONTINUE TO MONITOR.
[2017-05-21 08:00] VITALS: BP 127/65
[2017-05-21] MEDS: CINACALCET HCL 30 MG TABLET PO SCH (08:55)
[2017-05-21] MEDS: CARVEDILOL 6.25 MG TABLET PO SCH ×2 (08:55→17:00)
[2017-05-21] MEDS: CALCIUM CARB 250MG /VITAMIN D 1 UDTAB PO SCH (08:55)
[2017-05-21] MEDS: FOLIC ACID 1 MG TABLET PO SCH (08:55)
[2017-05-21] MEDS: PANTOPRAZOLE 40 MG TABLET.DR PO SCH (08:55)
[2017-05-21] MEDS: ASPIRIN 81 MG TAB.CHEW PO SCH (08:55)
[2017-05-21] MEDS: SEVELAMER CARBONATE 800 MG TABLET PO SCH ×3 (08:55→17:44)
[2017-05-21] MEDS: CHOLECALCIFEROL 1,000 UNIT TABLET (VIT D3) PO SCH (08:55)
[2017-05-21] MEDS: BENAZEPRIL HCL 20 MG TABLET PO SCH ×2 (08:56→17:00)
[2017-05-21 16:00] VITALS: BP 109/69
[2017-05-21 20:00] VITALS: BP_SYST 114; BP_DIAS 73; BP_DIAS 75
--- NOTE | 2017-05-21 21:00 | NUR ---
MS RN NOTES MD VISIT SEEN BY DR BABIN, WITH NEW ORDERS FOR LABS IN THE MORNING
[2017-05-21] MEDS: DOCUSATE SODIUM 100 MG CAPSULE PO SCH (21:23)
[2017-05-21] MEDS: MIRTAZAPINE 15 MG TABLET PO SCH (21:23)
[2017-05-22] MEDS: hydrALAZINE HCL 25 MG TABLET PO SCH ×3 (06:44→21:21)
--- NOTE | 2017-05-22 06:50 | NUR ---
MS RN NOTES NO SIGNIFICANT CHANGE IN STATUS.SLEPT WELL AT NIGHT.LATEST BP 117/69,PULSE 80.CALL LIGHT IN REACH,NEEDS ATTENDED.
[2017-05-22 07:11] LABS: BASOPHILS # (AUTO) 0.1 /CMM (0.0-0.2); BASOPHILS % (AUTO) 1.2 % (0.0-2.0); EOSINOPHILS # (AUTO) 0.4 /CMM (0.0-0.7); EOSINOPHILS % (AUTO) 4.8 % (0.0-6.0); HEMATOCRIT 30 % (39-51); HEMOGLOBIN 9.9 g/dL (13.5-17.5); LYMPHOCYTES # (AUTO) 1.7 /CMM (0.8-4.8); LYMPHOCYTES % (AUTO) 21.2 % (20.0-44.0); MEAN CORPUSCULAR HEMOGLOBIN 35 PG (26.0-33.0); MEAN CORPUSCULAR HGB CONC 33 g/dl (31.0-36.0); MEAN CORPUSCULAR VOLUME 107 fL (80-96); MONOCYTES % (AUTO) 12.7 % (2.0-12.0); NEUTROPHILS # (AUTO) 4.9 /CMM (1.8-8.9); NEUTROPHILS % (AUTO) 60.1 % (43.0-81.0); PLATELET COUNT (AUTO) 143 /CMM (150-450); RDW COEFFICIENT OF VARIATION 18.1 (11.5-15.0); RED BLOOD CELL COUNT(AUTO) 2.85 MIL/uL (4.5-6.0); WHITE BLOOD COUNT (AUTO) 8.1 K/uL (4.3-11.0)
--- NOTE | 2017-05-22 07:34 | NUR ---
MS RN OPENING NOTES RECEIVED PATIENT IN STABLE CONDITION. PATIENT IS RESTING IN BED IN NO APPARENT DISTRESS. BEDSIDE RAILS ARE UP X2. BED IS LOCKED AND LOWERED. WILL CONTINUE TO MONITOR. DIALYSIS STARTED AT 0720.
[2017-05-22 07:36] LABS: CALCIUM, SERUM 8.8 mg/dL (8.5-10.1); POTASSIUM 4.1 mmol/L (3.5-5.1)
[2017-05-22 07:38] LABS: CREATININE 11.7 mg/dL (0.6-1.3)
[2017-05-22 08:00] VITALS: BP 129/81
--- NOTE | 2017-05-22 08:47 | NUR ---
PATIENT ON DIALYSIS. HOLDING MEDICATION UNTIL 10AM.
[2017-05-22] MEDS: CARVEDILOL 6.25 MG TABLET PO SCH ×2 (09:00→17:00)
[2017-05-22] MEDS: BENAZEPRIL HCL 20 MG TABLET PO SCH ×2 (09:00→17:00)
--- NOTE | 2017-05-22 10:00 | NUR ---
400ML OUTPUT FROM DIALYSIS.
[2017-05-22] MEDS: ASPIRIN 81 MG TAB.CHEW PO SCH (10:17)
[2017-05-22] MEDS: CINACALCET HCL 30 MG TABLET PO SCH (10:17)
[2017-05-22] MEDS: SEVELAMER CARBONATE 800 MG TABLET PO SCH ×3 (10:18→17:10)
[2017-05-22] MEDS: CHOLECALCIFEROL 1,000 UNIT TABLET (VIT D3) PO SCH (10:18)
[2017-05-22] MEDS: FOLIC ACID 1 MG TABLET PO SCH (10:18)
[2017-05-22] MEDS: CALCIUM CARB 250MG /VITAMIN D 1 UDTAB PO SCH (10:18)
[2017-05-22] MEDS: PANTOPRAZOLE 40 MG TABLET.DR PO SCH (10:18)
--- NOTE | 2017-05-22 10:20 | NUR ---
GAVE PATIENT MEDICATION LATE DUE TO DIALYSIS. HELD BP MEDICATION DUE TO LOW BLOOD PRESSURE. 101/66.
[2017-05-22 16:00] VITALS: BP 109/60
--- NOTE | 2017-05-22 18:44 | NUR ---
MS RN CLOSING NOTES PATIENT IS IN STABLE CONDITION. IN NO APPARENT DISTRESS. PATIENT IS RESTING IN BED. BEDSIDE RAILS ARE UP X2. BED IS LOCKED AND LOWERED. CALL LIGHT IS WITHIN REACH. WILL ENDORSE CARE TO LICENSED REAL ESTATE BROKER NURSE FOR MIKAELA.
[2017-05-22 20:00] VITALS: BP 125/68
[2017-05-22] MEDS: DOCUSATE SODIUM 100 MG CAPSULE PO SCH (21:18)
[2017-05-22] MEDS: MIRTAZAPINE 15 MG TABLET PO SCH (21:19)
--- NOTE | 2017-05-23 03:41 | NUR ---
Inserted HL on right arm,24 g,tolerated well.Previous HL was on table.
[2017-05-23] MEDS: hydrALAZINE HCL 25 MG TABLET PO SCH ×3 (05:00→21:00)
[2017-05-23 06:31] LABS: BASOPHILS # (AUTO) 0.1 /CMM (0.0-0.2); BASOPHILS % (AUTO) 0.8 % (0.0-2.0); EOSINOPHILS # (AUTO) 0.4 /CMM (0.0-0.7); EOSINOPHILS % (AUTO) 6.3 % (0.0-6.0); HEMATOCRIT 29 % (39-51); HEMOGLOBIN 9.4 g/dL (13.5-17.5); LYMPHOCYTES # (AUTO) 1.3 /CMM (0.8-4.8); MEAN CORPUSCULAR HEMOGLOBIN 35 PG (26.0-33.0); MEAN CORPUSCULAR HGB CONC 32 g/dl (31.0-36.0); MEAN CORPUSCULAR VOLUME 107 fL (80-96); MONOCYTES # (AUTO) 0.9 /CMM (0.1-1.30); MONOCYTES % (AUTO) 12.3 % (2.0-12.0); NEUTROPHILS # (AUTO) 4.3 /CMM (1.8-8.9); NEUTROPHILS % (AUTO) 61.6 % (43.0-81.0); PLATELET COUNT (AUTO) 131 /CMM (150-450); RDW COEFFICIENT OF VARIATION 18.1 (11.5-15.0); RED BLOOD CELL COUNT(AUTO) 2.69 MIL/uL (4.5-6.0)
[2017-05-23 06:45] LABS: CALCIUM, SERUM 8.3 mg/dL (8.5-10.1); CREATININE 9.5 mg/dL (0.6-1.3); MAGNESIUM 2.1 mg/dL (1.8-2.4); PHOSPHORUS 5.9 mg/dL (2.5-4.9); POTASSIUM 3.9 mmol/L (3.5-5.1)
[2017-05-23 06:46] LABS: TROPONIN I 0.042 ng/mL (0.00-0.056)
--- NOTE | 2017-05-23 07:15 | NUR ---
RN OPENING NOTES RECEIVED PATIENT IN BED, ASLEEP, EASILY AROUSABLE, DENIES ANY PAIN, NOTED WITH NO SOB, BREATHING EVEN AND UNLABORED. NO SIGNS AND SYMPTOMS OF ACUTE DISTRESS AT THIS TIME. WILL CONTINUE TO MONITOR. PLACED CALL LIGHT WITHIN EASY REACH.
[2017-05-23] MEDS: ASPIRIN 81 MG TAB.CHEW PO SCH (09:49)
[2017-05-23] MEDS: FOLIC ACID 1 MG TABLET PO SCH (09:50)
[2017-05-23] MEDS: CARVEDILOL 6.25 MG TABLET PO SCH ×2 (09:50→17:00)
[2017-05-23] MEDS: CHOLECALCIFEROL 1,000 UNIT TABLET (VIT D3) PO SCH (09:51)
[2017-05-23] MEDS: CINACALCET HCL 30 MG TABLET PO SCH (09:51)
[2017-05-23] MEDS: CALCIUM CARB 250MG /VITAMIN D 1 UDTAB PO SCH (09:51)
[2017-05-23] MEDS: BENAZEPRIL HCL 20 MG TABLET PO SCH ×2 (09:51→17:00)
[2017-05-23] MEDS: SEVELAMER CARBONATE 800 MG TABLET PO SCH ×3 (09:51→17:24)
[2017-05-23 09:54] LABS: EOSINOPHILS % (MANUAL) 5 % (0-4); LYMPHOCYTES % (MANUAL) 9 % (16-48); MONOCYTES % (MANUAL) 8 % (0-11.0); NEUTROPHILS % (MANUAL) 78 (42-76)
[2017-05-23] MEDS: PANTOPRAZOLE 40 MG TABLET.DR PO SCH (09:57)
[2017-05-23 16:00] VITALS: BP 94/63
--- NOTE | 2017-05-23 18:30 | NUR ---
RN CLOSING NOTES PATIENT IN BED, ASLEEP BUT EASILY AROUSABLE, ABLE TO MAKE NEEDS KNOWN. NOTED WITH NO SOB, BREATHING EVEN AND UNLABORED, NOTED WITH NO SIGNS AND SYMPTOMS OF ACUTE DISTRESS. PLACED CALL LIGHT WITHIN EASY REACH.
[2017-05-23 20:00] VITALS: BP 102/60
[2017-05-23] MEDS: DOCUSATE SODIUM 100 MG CAPSULE PO SCH (22:28)
[2017-05-23] MEDS: MIRTAZAPINE 15 MG TABLET PO SCH (22:28)
[2017-05-24] MEDS: hydrALAZINE HCL 25 MG TABLET PO SCH ×3 (05:49→22:01)
--- NOTE | 2017-05-24 06:26 | NUR ---
RN CLOSING NOTES PATIENT IN BED, ASLEEP BUT EASILY AROUSABLE, ABLE TO MAKE NEEDS KNOWN. NOTED WITH NO SOB, BREATHING EVEN AND UNLABORED, NOTED WITH NO SIGNS AND SYMPTOMS OF ACUTE DISTRESS. PLACED CALL LIGHT WITHIN EASY REACH. ALL NEEDS MET AND ATTENDED TO. WILL ENDORSE TO DAY SHIFT FOR MIKAELA.
[2017-05-24 06:32] LABS: BASOPHILS # (AUTO) 0.1 /CMM (0.0-0.2); BASOPHILS % (AUTO) 1.5 % (0.0-2.0); EOSINOPHILS # (AUTO) 0.5 /CMM (0.0-0.7); EOSINOPHILS % (AUTO) 7.2 % (0.0-6.0); HEMATOCRIT 28 % (39-51); HEMOGLOBIN 8.8 g/dL (13.5-17.5); LYMPHOCYTES # (AUTO) 1.5 /CMM (0.8-4.8); LYMPHOCYTES % (AUTO) 21.5 % (20.0-44.0); MEAN CORPUSCULAR HEMOGLOBIN 34 PG (26.0-33.0); MEAN CORPUSCULAR HGB CONC 32 g/dl (31.0-36.0); MEAN CORPUSCULAR VOLUME 108 fL (80-96); MONOCYTES # (AUTO) 0.7 /CMM (0.1-1.30); NEUTROPHILS # (AUTO) 4.2 /CMM (1.8-8.9); NEUTROPHILS % (AUTO) 59.8 % (43.0-81.0); PLATELET COUNT (AUTO) 181 /CMM (150-450); RDW COEFFICIENT OF VARIATION 18.4 (11.5-15.0); RED BLOOD CELL COUNT(AUTO) 2.57 MIL/uL (4.5-6.0)
[2017-05-24 06:40] LABS: ALBUMIN 3.2 g/dL (3.4-5.0); BILIRUBIN,TOTAL 0.3 mg/dL (0.2-1.0); CALCIUM, SERUM 8.3 mg/dL (8.5-10.1); MAGNESIUM 2.2 mg/dL (1.8-2.4); POTASSIUM 4.5 mmol/L (3.5-5.1)
[2017-05-24 06:41] LABS: CREATININE 11.8 mg/dL (0.6-1.3)
--- NOTE | 2017-05-24 07:45 | NUR ---
RN INITIAL NOTES RECEIVED PT AWAKE, ALERT AND ORIENTED X 3, ABLE TO AMBULATE INDEPENDENTLY TO THE RESTROOM, NO C/O OF DIZZINESS, DENIES ANY CHEST PAIN, NO S/S OF ACUTE DISTRESS AT THIS TIME. ALL PATIENT'S NEEDS ATTENDED TO, CALL LIGHT PLACED WITHIN EASY REACH. WILL CONTINUE TO MONITOR.
[2017-05-24 08:00] VITALS: BP 116/66
[2017-05-24] MEDS: ASPIRIN 81 MG TAB.CHEW PO SCH (08:19)
[2017-05-24] MEDS: PANTOPRAZOLE 40 MG TABLET.DR PO SCH (08:19)
[2017-05-24] MEDS: FOLIC ACID 1 MG TABLET PO SCH (08:19)
[2017-05-24] MEDS: CINACALCET HCL 30 MG TABLET PO SCH (08:20)
[2017-05-24] MEDS: CHOLECALCIFEROL 1,000 UNIT TABLET (VIT D3) PO SCH (08:20)
[2017-05-24] MEDS: SEVELAMER CARBONATE 800 MG TABLET PO SCH ×3 (08:20→17:50)
[2017-05-24] MEDS: CALCIUM CARB 250MG /VITAMIN D 1 UDTAB PO SCH (08:20)
[2017-05-24 08:59] LABS: EOSINOPHILS % (MANUAL) 8 % (0-4); LYMPHOCYTES % (MANUAL) 17 % (16-48); MONOCYTES % (MANUAL) 10 % (0-11.0); NEUTROPHILS % (MANUAL) 65 (42-76)
[2017-05-24] MEDS: BENAZEPRIL HCL 20 MG TABLET PO SCH ×2 (09:00→17:00)
[2017-05-24] MEDS: ISOSORBIDE MONONITRATE (30MG) 30 MG TAB.SR.24H PO SCH (09:00)
[2017-05-24] MEDS: CARVEDILOL 6.25 MG TABLET PO SCH ×2 (09:00→17:00)
[2017-05-24] MEDS ORDERED: EPOETIN ALFA (10,000 UNIT) 10,000 UNIT/ML VIAL SQ ONE (15:00)
[2017-05-24 16:00] VITALS: BP 97/72
--- NOTE | 2017-05-24 18:30 | NUR ---
RN CLOSING NOTES PATIENT UP IN BED, ALERT AND ORIENTED, VERBALLY RESPONSIVE, ABLE TO MAKE NEEDS KNOWN, TOLERATING DINNER WELL. PATIENT WAS ABLE TO HAVE HEMODIALYSIS WITH 2OOO ML OUTPUT. DENIES ANY DIZZINESS. ALL PATIENT'S NEEDS ATTENDED TO. PLACED CALL LIGHT WITHIN EASY REACH. SAFETY PRECAUTIONS IN PLACE.
[2017-05-24 20:00] VITALS: BP 124/78
[2017-05-24 21:07] VITALS: BP 124/78
[2017-05-24] MEDS: MIRTAZAPINE 15 MG TABLET PO SCH (22:04)
[2017-05-24] MEDS: DOCUSATE SODIUM 100 MG CAPSULE PO SCH (22:04)
[2017-05-25] MEDS: hydrALAZINE HCL 25 MG TABLET PO SCH ×2 (05:00→13:00)
--- NOTE | 2017-05-25 06:31 | NUR ---
MS RN NOTE PATIENT SLEEPING IN BED. ALL NEEDS MET AND ATTENDED TO. WILL ENDORSE TO DAY SHIFT FOR MIKAELA.
[2017-05-25 06:58] LABS: BASOPHILS # (AUTO) 0.1 /CMM (0.0-0.2); BASOPHILS % (AUTO) 0.8 % (0.0-2.0); EOSINOPHILS # (AUTO) 0.4 /CMM (0.0-0.7); EOSINOPHILS % (AUTO) 5.3 % (0.0-6.0); HEMATOCRIT 30 % (39-51); HEMOGLOBIN 9.9 g/dL (13.5-17.5); LYMPHOCYTES # (AUTO) 1.5 /CMM (0.8-4.8); LYMPHOCYTES % (AUTO) 18.9 % (20.0-44.0); MEAN CORPUSCULAR HEMOGLOBIN 35 PG (26.0-33.0); MEAN CORPUSCULAR HGB CONC 33 g/dl (31.0-36.0); MEAN CORPUSCULAR VOLUME 108 fL (80-96); MONOCYTES # (AUTO) 0.8 /CMM (0.1-1.30); MONOCYTES % (AUTO) 10.8 % (2.0-12.0); NEUTROPHILS % (AUTO) 64.2 % (43.0-81.0); PLATELET COUNT (AUTO) 202 /CMM (150-450); RDW COEFFICIENT OF VARIATION 18.9 (11.5-15.0); RED BLOOD CELL COUNT(AUTO) 2.83 MIL/uL (4.5-6.0); WHITE BLOOD COUNT (AUTO) 7.7 K/uL (4.3-11.0)
[2017-05-25 07:30] LABS: ALBUMIN 3.6 g/dL (3.4-5.0); BILIRUBIN,TOTAL 0.3 mg/dL (0.2-1.0); CALCIUM, SERUM 8.4 mg/dL (8.5-10.1); POTASSIUM 3.9 mmol/L (3.5-5.1); TOTAL PROTEIN, SERUM 7.8 g/dL (6.4-8.2)
--- NOTE | 2017-05-25 07:30 | NUR ---
RECEIVED PT. IN AM ORIENTED X3,COOPERATIVE AT TIMES.VS STABLE.
[2017-05-25 07:42] LABS: CREATININE 9.8 mg/dL (0.6-1.3)
[2017-05-25 08:00] VITALS: BP 107/69
[2017-05-25] MEDS: ISOSORBIDE MONONITRATE (30MG) 30 MG TAB.SR.24H PO SCH (09:00)
[2017-05-25] MEDS: BENAZEPRIL HCL 20 MG TABLET PO SCH (09:00)
[2017-05-25] MEDS: CARVEDILOL 6.25 MG TABLET PO SCH (09:00)
[2017-05-25] MEDS: ASPIRIN 81 MG TAB.CHEW PO SCH (10:15)
[2017-05-25] MEDS: CALCIUM CARB 250MG /VITAMIN D 1 UDTAB PO SCH (10:15)
[2017-05-25] MEDS: CHOLECALCIFEROL 1,000 UNIT TABLET (VIT D3) PO SCH (10:15)
[2017-05-25] MEDS: FOLIC ACID 1 MG TABLET PO SCH (10:15)
[2017-05-25] MEDS: CINACALCET HCL 30 MG TABLET PO SCH (10:15)
[2017-05-25] MEDS: PANTOPRAZOLE 40 MG TABLET.DR PO SCH (10:16)
[2017-05-25] MEDS: SEVELAMER CARBONATE 800 MG TABLET PO SCH ×2 (10:22→13:27)
--- NOTE | 2017-05-25 11:30 | NUR ---
DR. NATALIE BABIN CALLED AND GAVE DISCH. ORDERS.
[2017-05-25 13:00] VITALS: BP 103/72
--- NOTE | 2017-05-25 13:45 | NUR ---
CALL TO PT,S FACILITY -REPORT GIVEN TO [place],ALL PAPERWORK SIGNED,AND BELONGINGS PACKED UP. HEP LOCK OUT.REPORT TO DRIVERS.TAKEN VIA AMBULANCE TO FACILITY.
--- NOTE | 2017-05-25 13:46 | NUR ---
RT. CHEST PERMACATH IN PLACE.
== END 2017-05-25 13:45 | DRG 682 ==
LOC: ER 12:36 → TELE 14:09 → MED 05-20 08:02
PROVIDERS: ADMIT Internal Medicine Rheumatology; ATTEND Internal Medicine Rheumatology
PROC: 5A1D70Z Performance of Urinary Filtration, Intermittent, Less than 6 Hours Per Day (ICD-10-PCS; principal; 2017-05-20)
DX: I12.0 Hypertensive chronic kidney disease with stage 5 chronic kidney disease or end stage renal disease (principal); N18.6 End stage renal disease; G93.40 Encephalopathy, unspecified; G81.94 Hemiplegia, unspecified affecting left nondominant side; Z99.2 Dependence on renal dialysis; R41.82 Altered mental status, unspecified; Z79.899 Other long term (current) drug therapy; M85.9 Disorder of bone density and structure, unspecified; I25.10 Atherosclerotic heart disease of native coronary artery without angina pectoris; E78.5 Hyperlipidemia, unspecified; Z82.49 Family history of ischemic heart disease and other diseases of the circulatory system; Z87.891 Personal history of nicotine dependence
CPT/HCPCS: 36415; 70450-TC; 71010-TC; 80048-TC; 80053-TC; 80076-TC; 82962-TC; 83735-TC; 83880; 84100-TC; 84484-TC; 85025-TC; 85730-TC; 87081-TC; 90935-TC; A4606; J0885; Z7610